=== PATIENT | female | born 1960 | race Hispanic/Latino ===

== ENCOUNTER 2017-09-24 06:17 | Day surgery (SDC) | payer OTHER ==
[2017-09-22 10:10] LABS: Hematocrit 41.6 % (30.3-42.9); Hemoglobin 14.1 gm/dl (10.1-14.3); Mean Corpuscular HGB Conc 34 % (30-34); Mean Corpuscular Hemoglobin 30 pg (28-32); Mean Corpuscular Volume 87 fl (79-97); Platelet Count 192 K/mm3 (140-440); Red Blood Count 4.78 M/mm3 (3.65-5.03)
--- NOTE | 2017-09-22 10:45 | Anesthesia Consultation ---
Anesthesia Consult and Med Hx - Airway Anesthetic Teeth Evaluation: Good ROM Head & Neck: Adequate Mental/Hyoid Distance: Adequate Mallampati Class: Class II Intubation Access Assessment: Probably Good - Pulmonary Exam CTA: Yes - Cardiac Exam Cardiac Exam: RRR - Pre-Operative Health Status ASA Pre-Surgery Classification: ASA2 Proposed Anesthetic Plan: General Nerve Block: TAP - Pre-Anesthesia Comment Pre-Anesthesia Comments: Patient reports delayed emergence. Will obtain the records - Pulmonary Hx Smoking: No - Central Nervous System Hx Psychiatric Problems: No - Other Systems Hx Alcohol Use: Yes (occas) Hx Cancer: No
[2017-09-22 12:35] LABS: Basophils % (Manual) 0 % (0.0-1.8); Eosinophils % (Manual) 0 % (0.0-4.3); RBC Morphology Normal; Total Cells Counted 100
[~2017-09-24 06:17] MED LIST: NACL 0.9% 1000 ML 1,000 ML IV SCH; NEURONTIN PO NR; PEPCID PO NR; SUBLIMAZE IV ONE; VERSED IV NR
== END 2017-09-24 06:18 | disposition home or self-care (01) ==
LOC: OR 06:17
PROVIDERS: ATTEND Obstetrics & Gynecology
DX: N81.4 Uterovaginal prolapse, unspecified (principal); R10.2 Pelvic and perineal pain; Z53.8 Procedure and treatment not carried out for other reasons
CPT/HCPCS: 36415; 85007; 85025; 86850; 86900; 86901; J7030

== ENCOUNTER 2017-10-01 09:08 | Observation (INO) | payer OTHER ==
--- NOTE | 2017-09-30 14:42 | History and Physical Report ---
History of Present Illness Date of examination: 09/30/17 Date of admission: 10/01/2017 Chief complaint: prolapse History of present illness: 57y/o with the complaint of pelvic pressure and discomfort. She denies urinary incontinence. The patient is not experiencing any vaginal bleeding. She states her symptoms are accentuated by lifting and prolonged standing. Patient has been reassessed/reevaluated/re-examined. H&P has been reviewed. No interval changes. Past History Past Medical History: thyroid disease Past Surgical History: other (back; tubal ligation) Social history: - Obstetrical History : 3 Para: 3 Hx # Term Pregnancies: 3 Number of Pregnancies: 0 Spontaneous Abortions: 0 Induced : 0 Number of Living Children: 3 Medications and Allergies Allergies Allergy/AdvReac Type Severity Reaction Status Date / Time Sulfa (Sulfonamide Allergy swelling, Verified 09/26/17 16:49 Antibiotics) rash Home Medications Medication Instructions Recorded Confirmed Last Taken Type Levothyroxine Sodium [Synthroid] 88 mcg PO DAILY 09/19/17 10/01/17 10/01/17 07: 45 History Review of Systems Genitourinary: pelvic pain - Physical Exam Breasts: Positive: deferred Cardiovascular: Regular rate Lungs: Positive: Clear to auscultation Abdomen: Positive: normal appearance, soft Results All other labs normal. Assessment and Plan - Patient Problems (1) Uterovaginal prolapse Current Visit: Yes Status: Acute Plan to address problem: scheduled for robotic hysterectomy/BSO/anterior repair (2) Cystocele Current Visit: Yes Status: Acute
[~2017-10-01 09:08] MED LIST changes: +ANCEF/STERILE WATER 2 GM/20 ML 2 GM/20 ML SYRINGE IV SCH; -NACL 0.9% 1000 ML 1,000 ML IV SCH; -NEURONTIN PO NR; -PEPCID PO NR; -SUBLIMAZE IV ONE; -VERSED IV NR
[2017-10-01] MEDS ORDERED: THROMBIN (BOVINE) TP ONE (09:21)
[2017-10-01] MEDS ORDERED: MARCAINE 0.5% 0 ML INFILTRATI ONE (09:21)
[2017-10-01] MEDS ORDERED: METHYLENE BLUE ONE (09:21)
[2017-10-01] MEDS ORDERED: GELFOAM POWDER 1GM MM ONE (09:21)
[2017-10-01] MEDS ORDERED: NEOSPORIN GU IR ONE ×2 (09:22→13:09)
[2017-10-01] MEDS ORDERED: LACTATED RINGERS 1,000 ML IV SCH (10:00)
[2017-10-01] MEDS ORDERED: VERSED IV NR (10:00)
[2017-10-01] MEDS ORDERED: MARCAINE 0.5% INFILTRATI NR (10:00)
[2017-10-01] MEDS ORDERED: XYLOCAINE 1% 20 mL INFILTRATI NR (10:00)
[2017-10-01] MEDS ORDERED: NACL P/F VIAL (10 ML) INFILTRATI NR (10:00)
--- NOTE | 2017-10-01 10:02 | Anesthesia Day of Surgery ---
Anesthesia Day of Surgery - Day of Surgery Patient Examined: Yes Patient H&P Reviewed: Yes Patient is NPO: Yes Beta Blockers: Yes Cardiac Clearance: Yes Pulmonary Clearance: Yes
[2017-10-01] MEDS ORDERED: ANCEF/STERILE WATER 2 GM/20 ML IV NR (11:00)
[2017-10-01] MEDS ORDERED: SUBLIMAZE ONE ×2 (11:04→14:29)
[2017-10-01] MEDS ORDERED: DIPRIVAN 10 MG/ML IV ONE (11:04)
[2017-10-01] MEDS ORDERED: ZEMURON IV ONE (11:06)
[2017-10-01] MEDS ORDERED: XYLOCAINE MPF 2% ONE (11:08)
--- NOTE | 2017-10-01 11:09 | Anesthesia Consultation ---
Anesthesia Consult and Med Hx Date of service: 10/01/17 - Airway Anesthetic Teeth Evaluation: Good ROM Head & Neck: Adequate Mallampati Class: Class II Intubation Access Assessment: Possibly Difficult - Pulmonary Exam CTA: No - Cardiac Exam Cardiac Exam: RRR - Pulmonary Hx Smoking: No - Central Nervous System Hx Psychiatric Problems: No - Endocrine Hx Thyroid Disease: Yes - Other Systems Hx Alcohol Use: Yes (occas) Hx Cancer: No
[2017-10-01] MEDS ORDERED: TRANSDERM-SCOP TD ONE (11:17)
[2017-10-01] MEDS ORDERED: DECADRON ONE (11:51)
[2017-10-01] MEDS ORDERED: ROBINUL ONE ×2 (12:36→13:48)
[2017-10-01] MEDS ORDERED: LACTATED RINGERS 1,000 ML ONE ×2 (12:51→14:45)
--- NOTE | 2017-10-01 13:01 | Post Anesthesia Evaluation ---
- Post Anesthesia Evaluation Patient Participated: Yes Airway Patent: Yes Stable Respiratory Function: Yes Nausea/Vomiting: No Temp > 96.8F: Yes Pain Manageable: Yes Adequeate Hydration: Yes Anesthesia Complications: No
[2017-10-01] MEDS ORDERED: NACL 0.9% IR ONE ×2 (13:09)
[2017-10-01] MEDS ORDERED: ZOFRAN ONE ×2 (13:40→15:19)
[2017-10-01] MEDS ORDERED: NEOSTIGMINE ONE (13:48)
[2017-10-01] MEDS ORDERED: NARCAN 0.4 MG/1 ML IV PRN (13:57)
--- NOTE | 2017-10-01 13:57 | Operative Report ---
Operative Report Operative Report: Date of surgery: 10/01/2017 Preoperative diagnoses: Uterovaginal prolapse; cystocele Postoperative diagnoses: Same as above Procedure: Robotic hysterectomy and bilateral salpingo-oophorectomy; anterior repair and Shawanda plication Surgeon: Laura Hamilton M.D. Automotive Painter Helper: Corine Plunkett Anesthesia: Gen. endotracheal anesthesia Estimated blood loss: 100 mL Pathology: Uterus, cervix, bilateral tubes and ovaries Indication: 57-year-old 003 with a history of mild uterovaginal prolapse. The patient reported worsening of pelvic pressure with prolonged standing and lifting. Procedure: The patient was taken to the operating room and given general endotracheal anesthesia without complication. She is prepped and draped in a normal sterile fashion. A bivalve speculum was placed in the patient's vagina and a single- tooth tenaculum placed on the anterior lip of the cervix. The uterus was sounded with the uterine sound. A [employer] uterine manipulator was placed in the bivalve speculum was then removed. Attention was then turned to the patient's abdomen where a 12 millimeter supra umbilical skin incision was then made. A Veress needle was placed and peritoneal entry was verified water-filled syringe. Insufflation of the peritoneal cavity was performed with CO2 gas. The 12 mm trocar was then placed under direct visualization. An additional 8 mm trocar was placed on the patient's left and right lateral side just opposite of the supraumbilical trocar. An additional 5 mm right lateral trocar was then placed as the accessory port. The Sami Conrad device was used to close the fascia of the 12 mm incision. The patient was then placed in steep Trendelenburg. The da Benny robot was then engaged. A fenestrated forcep was placed in arm 2 and a vessel sealer was placed in arm 1. The surgeon then transferred to the surgical console. The infundibulopelvic ligament was then isolated on the right. The vessel sealer was used to coagulate the ligament which was then transected. The tube and ovary were transected from the supply. The round ligament was then coagulated and transected also. The vesicouterine peritoneum was then entered from the patient's right side. The uterine vessels were then coagulated with the vessel sealer. The vessels were then transected . Attention was then turned to the patient's left side where the infundibulopelvic ligament and mesosalpinx were again isolated coagulated and transected. The vesical peritoneum was then entered from the left and joined in the midline. Peritoneum was reflected off of the lower uterine segment. Uterine vessels were then coagulated and then transected. The blood supply to the uterus was adequately contained, a posterior colpotomy was made. The V care ring was visualized. Posterior colpotomy was created with the monopolar scissors. The incision was continued circumferentially until anterior colpotomy was made. The cervix and uterus were amputated from the vaginal cuff. The uterus was then removed along with the tubes and ovaries bilaterally through the vagina the surgeon transferred to the foot of the bed. A weighted speculum was placed in the patient's vagina. The vaginal mucosa was grasped with an Allis clamp. The pubovesical fascia was dissected off of the vaginal mucosa. A vertical incision was made on the vaginal mucosa approximately 1 cm from the urethral orifice. With sharp dissection with Metzenbaum scissors the fascia was dissected off of the vaginal mucosa. A Shawanda plication procedure was performed where the fascia was reapproximated the midline with interrupted sutures. The excess vaginal mucosa was excised with the scalpel. The anterior vaginal mucosa was reapproximated with 3-0 Vicryl in a running fashion. The vaginal cuff opening was then closed with interrupted 0 Vicryl [id number] stitches. The surgeon transferred back to the console to visualize the cuff. There was evidence of a small cuff defect. A V lock suture was placed in the patient's abdomen and the defect was closed in a running fashion. Patrick and Surgicel placed over the surgical site. The skin was then reapproximated with 4-0 Monocryl. The tissue was sent to pathology which included the cervix, uterus, tubes and ovaries. The patient was then successfully extubated. She was then taken to the recovery room in stable condition. All sponge laps and needle counts were correct x2.
[2017-10-01] MEDS ORDERED: MOTRIN PO PRN (13:58)
[2017-10-01] MEDS ORDERED: PERCOCET 5/325 PO PRN (13:58)
[2017-10-01] MEDS ORDERED: ZOFRAN IV PRN (13:58)
[2017-10-01] MEDS ORDERED: MILK OF MAGNESIA PO PRN (13:58)
[2017-10-01] MEDS ORDERED: MORPHINE PCA 30MG/30ML IV SCH (14:08)
[2017-10-01] MEDS ORDERED: SUBLIMAZE IV PRN (14:33)
[2017-10-01] MEDS: TORADOL IV SCH (14:51)
[2017-10-01] MEDS ORDERED: D5LR 1,000 ML IV SCH (15:00)
[2017-10-02 04:34] LABS: Hematocrit 36.8 % (30.3-42.9); Hemoglobin 12.6 gm/dl (10.1-14.3)
[2017-10-02] MEDS: TORADOL IV SCH ×2 (08:30→14:25)
--- NOTE | 2017-10-02 08:58 | Progress Note ---
Assessment and Plan - Patient Problems (1) Uterovaginal prolapse Current Visit: Yes Status: Acute Plan to address problem: patient doing well (2) Cystocele Current Visit: Yes Status: Acute Subjective - Subjective Date of service: 10/02/17 Interval history: Patient reports her pain is controlled. She has not voided yet. Tolerating her diet without complication. Patient reports: appetite normal, pain well controlled Objective - Vital Signs Latest vital signs: Vital Signs Temp Pulse Pulse Resp BP BP Pulse Ox 10/02/17 07:12 18 10/02/17 05:30 98.6 F 96 H 20 98/56 10/02/17 05:15 18 10/02/17 01:51 18 10/02/17 00:00 98.2 F 70 18 111/58 10/01/17 21:53 16 10/01/17 20:10 97.8 F 78 20 109/71 10/01/17 19:50 18 10/01/17 17:45 16 10/01/17 16:35 97.5 F L 70 20 105/60 10/01/17 15:40 97.8 F 55 L 55 L 16 131/75 131/75 100 10/01/17 15:09 52 L 12 120/67 100 10/01/17 14:51 15 10/01/17 14:45 53 L 12 123/68 100 10/01/17 14:40 14 10/01/17 14:30 48 L 10 L 124/72 100 10/01/17 14:15 54 L 14 118/71 100 10/01/17 14:10 96.9 F L 56 L 14 119/68 100 10/01/17 09:55 98.3 F 72 18 117/72 97 10/01/17 09:20 98.3 F 72 18 117/72 97 Intake and Output 10/01/17 10/02/17 10/02/17 22:59 06:59 14:59 Intake Total 240 240 Output Total 400 600 Balance -160 -360 Intake: Oral 240 240 Output: Urine 400 600 Indwelling Catheter 400 600 Other: Total, Intake Amount 120 120 Total, Output Amount 400 200 Voiding Method Indwelling Catheter - Exam Breasts: Present: deferred Cardiovascular: Present: Regular rate Lungs: Present: Clear to auscultation Abdomen: Present: normal appearance Incision: Present: normal
--- NOTE | 2017-10-02 09:01 | Discharge Summary ---
Providers - Providers Date of Admission: 10/01/17 13:58 Date of discharge: 10/02/17 Attending physician: KURT DIAZ Primary care physician: DILMA SAUCEDO Hospitalization Reason for admission: other (uterovaginal prolapse) Procedure: other (robotic hysterectomy and anterior repair) Incision: normal Discharge diagnosis: other (uterovaginal prolapse) Hospital course: Patient admitted for a robotic hysterectomy and anterior repair. Please see operative note for details of surgery. Her postoperative course was uneventful Condition at discharge: Good Disposition: [id number] TO HOME OR SELFCARE - Discharge Diagnoses (1) Uterovaginal prolapse Status: Acute (2) Cystocele Status: Acute Plan - Discharge Medications Prescriptions: Ibuprofen [Motrin] 800 mg PO Q8HR PRN #60 tablet PRN Reason: Pain Oxycodone HCl/Acetaminophen [Percocet 7.5/325 mg] 1 each PO Q6HR PRN #45 tablet PRN Reason: Pain Tolterodine [Detrol LA] 4 mg PO QDAY #30 capsule - Provider Discharge Summary Activity: no sex for 6 weeks, no heavy lifting 4 weeks, no strenuous exercise Diet: routine Instructions: routine Additional instructions: [] Smoking cessation referral if applicable(refer to patient education folder for contact #) [] Refer to [facility] Booklet Call your doctor immediately for: * Fever > 100.5 * Heavy vaginal bleeding ( >1 pad per hour) * Severe persistent headache * Shortness of breath * Reddened, hot, painful area to leg or breast * Drainage or odor from incision. * Keep incision clean and dry at all times and follow doctor's instructions regarding bathing/showering Follow-up in [address] Grace - Follow up plan
--- NOTE | 2017-10-02 12:34 | Progress Note ---
Subjective Date of service: 10/02/17 Interval history: 1st POD after robotic hysterectomy Patient is in the bed, comfortable. Pain is well controlled with pain meds. Ambulated well. No nausea or vomiting. No anesthesia complications Objective - Constitutional Vitals: Vital Signs - 12hr 10/02/17 10/02/17 10/02/17 01:51 05:15 05:30 Temperature 98.6 F Pulse Rate 96 H Respiratory 18 18 20 Rate Blood Pressure 98/56 [Left] O2 Sat by Pulse Oximetry 10/02/17 10/02/17 10/02/17 07:12 08:09 11:50 Temperature 98.2 F 98.4 F Pulse Rate 58 L 65 Respiratory 18 18 18 Rate Blood Pressure 87/51 91/42 [Left] O2 Sat by Pulse 96 96 Oximetry - Labs CBC & Chem 7: 10/02/17 04:11
[2017-10-02 16:08] VITALS: BP 104/48
== END 2017-10-02 16:30 | disposition home or self-care (01) ==
LOC: OR 09:08 → OB 13:58
PROVIDERS: ADMIT Obstetrics & Gynecology; ATTEND Obstetrics & Gynecology
DX: N81.4 Uterovaginal prolapse, unspecified (principal); N81.10 Cystocele, unspecified
CPT/HCPCS: 36415; 58552; 81025; 85014; 85018; 86850; 86900; 86901; 88305; 88307; 96374; 96375; 96376; A4217; G0378; J0690; J1100; J1885; J2250; J2270; J2405; J2704; J2710; J3010; J7120; J7121; S2900; A4649; Q9968

== ENCOUNTER 2017-11-17 10:50 | Outpatient (CLI) | payer OTHER ==
--- NOTE | 2017-11-18 10:04 | Mammography Report ---
BONE DEXA:11/17/17 11:00:00 CLINICAL: Postmenopausal. No comparison. TECHNIQUE: Two site bone DEXA performed on an Hologic scanner. FINDINGS: The average BMD of the lumbar spine L1-L4 is 0.799g/cm squared with a T-score of -2.3 and a Z-score of -1.1. The average BMD of the left hip is 0.746g/cm squared with a T-score of -1.6 and a Z-score of -0.9. IMPRESSION: 1. WHO classification: Osteopenia with increased fracture risk based on the spine and left hip measurements. 2. The FRAX 10 year fracture probability for a major osteoporotic fracture is 7.1%. 3. The FRAX 10 year fracture probability for hip fracture is 0.6%. Note: FRAX version 3.01. Fracture probability calculated for an untreated patient. Fracture probability may be lower if the patient has received treatment. RECOMMENDATION: Clinical correlation and routine screening. DEFINITIONS: BMD = Bone Mineral Density T-score = BMD related to mean peak bone mass of young adult (mean expressed in Standard Deviation) Z-score = Age matched BMD expressed in SD World Health Organization (WHO) Diagnostic Criteria Normal T-score > -1 SD Osteopenia T-score between -1 and -2.4 SD Osteoporosis T-score -2.5 SD or below NOTE: BMD is not the only risk factor for fracture; also consider factors such as the patient's age, risk of falling, previous osteoporotic fracture, family history of osteoporotic fractures, current smoker, and low body weight. All treatment decisions require clinical judgment and consideration of individual patient factors, including patient preferences, comorbidities, previous drug use and risk factors not captured in the FRAX model (e.g. frailty, falls, vitamin D deficiency, increased bone turnover, interval significant decline in BMD). Fracture probability is calculated for an untreated patient. Fracture probability may be lower if the patient has received treatment. Z-scores are not calculated if >80 years of age.
== END 2017-11-17 10:51 | disposition home or self-care (01) ==
LOC: MAMMO 10:50
PROVIDERS: ATTEND Obstetrics & Gynecology
DX: M85.88 Other specified disorders of bone density and structure, other site (principal); Z78.0 Asymptomatic menopausal state
CPT/HCPCS: 77080